=== PATIENT | female | born 2000 | race African-American/Black ===

== ENCOUNTER 2020-02-21 06:15 | Inpatient (IN) ==
[2020-02-21] MEDS ORDERED: PITOCIN ONE (06:24)
[2020-02-21] MEDS ORDERED: BETADINE SOLN ONE (06:25)
[2020-02-21] MEDS ORDERED: D5 1/2 NS 1000 ML 1,000 ML IV ONE (06:25)
[2020-02-21] MEDS ORDERED: D5 1/2 NS 1L W PITOCIN 20 UNITS/L 20 UNITS/1,000 ML BAG IV ONE (06:26)
[2020-02-21] MEDS ORDERED: D5LR 1L W PITOCIN 10 UNITS/L 10 UNITS/1,000 ML BAG IV ONE (06:26)
[2020-02-21] MEDS ORDERED: PITOCIN IVP ONE (06:41)
[2020-02-21] MEDS ORDERED: PHENERGAN INJ 25 MG IM PRN (06:41)
[2020-02-21] MEDS ORDERED: D5LR 1L W PITOCIN 10 UNITS/L 10 UNITS/1,000 ML BAG IV PRN (06:41)
[2020-02-21] MEDS ORDERED: REGLAN INJ 10 MG VIAL IVP PRN (06:41)
[2020-02-21] MEDS ORDERED: MORPHINE SULFATE INJ 2 MG INJ IVP PRN (06:41)
[2020-02-21] MEDS ORDERED: NUBAIN INJ 200 MG VIAL MULTIDOSE IVP PRN (06:41)
[2020-02-21] MEDS: D5 1/2 NS 1000 ML 1,000 ML IV SCH ×2 (06:45→19:18)
[2020-02-21 07:11] LABS: URIC ACID 3.4 mg/dL (2.6-6.0)
--- NOTE | 2020-02-21 07:35 | DR.OB ---
OB Quick Note - Assessment/Plan Assessment/Plan: L&D 02/21/20 at 7:05am S-No complaint. O-Afebrile,VSS YTA=240 with good LTV, +accel, no decel. CTX=q 1 1/2 to 3 min., mild by palpation CVX=3cm/50%/-1/VTX AROM with clear fluid. IUPC and FSE placed. A-IUP at 38 3/7 weeks for induction PIH P-Begin pitocin induction F/U preeclamptic labs Anticipate
[2020-02-21] MEDS ORDERED: STADOL INJ IVP PRN (08:35)
[2020-02-21] MEDS ORDERED: STADOL INJ ONE (08:36)
[2020-02-21] MEDS ORDERED: FENTANYL INJ 100 mcg ONE (09:22)
[2020-02-21] MEDS ORDERED: LR 1000 ML IV 1,000 ML IV ONE (09:22)
[2020-02-21] MEDS ORDERED: FENTANYL 2 mcg/mL-ROPIV 0.1%-NS EPIDURAL 200 ML EPI ONE (09:23)
[2020-02-21] MEDS ORDERED: DERMOPLAST PAIN RELIEF SPRAY TOP PRN (15:45)
[2020-02-21] MEDS ORDERED: MILK OF MAGNESIA PO PRN (15:45)
[2020-02-21] MEDS ORDERED: AMBIEN PO PRN (17:19)
[2020-02-21] MEDS: MOTRIN TAB 800 MG PO PRN (18:19)
[2020-02-22 05:55] LABS: HEMATOCRIT 32.8 % (36.0-47.0); HEMOGLOBIN 10.4 g/dL (12.0-16.0)
[2020-02-22] MEDS: D5 1/2 NS 1000 ML 1,000 ML IV SCH (06:30)
[2020-02-22] MEDS: MOTRIN TAB 800 MG PO PRN (06:31)
[2020-02-22] MEDS ORDERED: DEPO-PROVERA CONTRACEPTIVE INJ IM ONE (07:32)
--- NOTE | 2020-02-22 07:41 | DR.OB ---
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 Head delivered over intact perineum. Nose and mouth bulb suctioned. Nuchal cord x 2 reduced. Body delivered over intact perineum. Cord clamped x 2 and cut. A true knot was noted. Infant handed to attendant. Placenta delivered spontaneously / intact / 3 vessel cord. No CVX tears noted, but a second degree midline tear noted and repaired with 0-vicryl in usual fashion. Viable female infant, VTX/OA, wt=6'12" and 9/9, stable to NBN. Mother stable to RR. QJE=[id number].
[2020-02-22] MEDS ORDERED: PROTONIX TAB 40 MG PO SCH (09:00)
[2020-02-22] MEDS ORDERED: PRENATAL PLUS PO SCH (09:00)
[2020-02-22] MEDS ORDERED: ADACEL or BOOSTRIX TDaP VACCINE IM ONE (09:00)
[2020-02-22 12:56] VITALS: BP 124/80
[2020-02-22] MEDS ORDERED: FERROUS GLUCONATE PO SCH (17:00)
== END 2020-02-22 15:40 | disposition home or self-care (01) | DRG 807 ==
LOC: LD 06:15 → MED/SURG 17:23
PROVIDERS: ADMIT Specialist; ATTEND Specialist
DX: Z01.812 Encounter for preprocedural laboratory examination; O70.1 Second degree perineal laceration during delivery; Z3A.38 38 weeks gestation of pregnancy; O99.02 Anemia complicating childbirth; O13.3 Gestational [pregnancy-induced] hypertension without significant proteinuria, third trimester; Z37.0 Single live birth
CPT/HCPCS: 36415; 80048; 80307; 81001; 83615; 84450; 84460; 84550; 85014; 85018; 85025; 85384; 85610; 85730; 86592; 86850; 86900; 86901; 90715; A4216; A4222; J0595; J1050; J2590; J3010; J7120; S0197; S5010